=== PATIENT | female | born 2000 | race Caucasian/White ===

== ENCOUNTER → 2020-06-13 14:56 | Outpatient (CLI) | payer OTHER, SELFPAY ==
[2020-06-13 13:24] VITALS: BMI 22.4
[2020-06-13 17:19] LABS: Chlamydia Trachomatis by PCR Negative (Negative); Neisserai gonorrhoeae by PCR Negative (Negative); Probe Check PASS; Sample Adequacy Control PASS; Specimen Processing Control PASS
== END ==
PROVIDERS: PCP Pediatrics; Referring Provider Nurse Practitioner Women's Health; Visit Provider Nurse Practitioner Women's Health
DX: Z11.3 Encounter for screening for infections with a predominantly sexual mode of transmission (principal)
CPT/HCPCS: 87491; 87591

== ENCOUNTER → 2020-06-15 16:22 | Outpatient (CLI) | payer OTHER, SELFPAY ==
[2020-06-13 13:24] VITALS: BMI 22.4
--- NOTE | 2020-06-15 16:26 | US_ITS ---
STUDY: ULTRASOUND OF THE FEMALE PELVIS - COMPLETE REASON FOR EXAM: Female, 19 years old. DYSMENORRHEA LMP: 06/13/2020 TECHNIQUE: Transabdominal and Transvaginal TECHNICAL QUALITY: Adequate. COMPARISON: None. FINDINGS: The uterus is anteverted and is in a midline position. The uterus measures 6.7 x 3.2 x 3.0 cm. Fluid in the cervix. The endometrium measures 2 mm in thickness, and is hyperechoic. There is no demonstrated endometrial mass. There is no demonstrated myometrial mass. I.U.D. - The patient does not have an I.U.D. The right ovary is visualized. The right ovary measures 2.9 x 2.1 x 1.5 cm. There is no right ovarian cyst or ovarian mass. There is no visualized right adnexal mass or complex lesion. Vascularity is grossly intact, although arterial Dopplers were not obtained. If there is clinical concern for torsion, arterial Doppler exam is recommended. The left ovary is visualized. The left ovary measures 1.9 x 1.8 x 1.7 cm. There is no left ovarian cyst or ovarian mass. There is no visualized left adnexal mass or complex lesion. Vascularity is grossly intact, although arterial Dopplers were not obtained. If there is clinical concern for torsion, arterial Doppler exam is recommended. There is no fluid in the cul-de-sac. The pre void volume of the bladder was 34.7 ml. Polycystic ovary disease: No. US/Transvaginal Non- IMPRESSION: Fluid in the cervix. Otherwise, normal uterus. Grossly normal ovaries. Electronically Signed: Mariusz De Jesus MD at 18:24 EDT Tel , Service support ,
--- NOTE | 2020-06-15 16:26 | US_ITS ---
STUDY: ULTRASOUND OF THE FEMALE PELVIS - COMPLETE REASON FOR EXAM: Female, 19 years old. DYSMENORRHEA LMP: 06/13/2020 TECHNIQUE: Transabdominal and Transvaginal TECHNICAL QUALITY: Adequate. COMPARISON: None. FINDINGS: The uterus is anteverted and is in a midline position. The uterus measures 6.7 x 3.2 x 3.0 cm. Fluid in the cervix. The endometrium measures 2 mm in thickness, and is hyperechoic. There is no demonstrated endometrial mass. There is no demonstrated myometrial mass. I.U.D. - The patient does not have an I.U.D. The right ovary is visualized. The right ovary measures 2.9 x 2.1 x 1.5 cm. There is no right ovarian cyst or ovarian mass. There is no visualized right adnexal mass or complex lesion. Vascularity is grossly intact, although arterial Dopplers were not obtained. If there is clinical concern for torsion, arterial Doppler exam is recommended. The left ovary is visualized. The left ovary measures 1.9 x 1.8 x 1.7 cm. There is no left ovarian cyst or ovarian mass. There is no visualized left adnexal mass or complex lesion. Vascularity is grossly intact, although arterial Dopplers were not obtained. If there is clinical concern for torsion, arterial Doppler exam is recommended. There is no fluid in the cul-de-sac. The pre void volume of the bladder was 34.7 ml. Polycystic ovary disease: No. US/Pelvic (Non ) IMPRESSION: Fluid in the cervix. Otherwise, normal uterus. Grossly normal ovaries. Electronically Signed: Mariusz De Jesus MD at 18:24 EDT Tel , Service support ,
== END ==
PROVIDERS: PCP Pediatrics; Referring Provider Nurse Practitioner Women's Health; Visit Provider Nurse Practitioner Women's Health
DX: N94.6 Dysmenorrhea, unspecified (principal)
CPT/HCPCS: 76830; 76856

== ENCOUNTER 2023-07-07 11:49 | Emergency (ER) | payer BC, SELFPAY ==
[2023-07-07] VITALS (7 sets, daily range): BP systolic 138; BP diastolic 95; PULSE 99; RESP 16–18; TEMP 36.9; O2SAT 97; BMI 21.1
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
--- NOTE | 2023-07-07 13:29 | EDS_ITS ---
HPI <CLAUDIO Almazan - Last Filed: 07/07/23 22:10> History of Present Illness Chief Complaint: Mental Health Narrative Narrative: Patient is a 22-year-old female with history of anxiety presents to the emergency department with her parents for altered mental status. Per the patient's mother and stepfather, the patient is a normal acting 22-year-old. She recently graduated from college in [place] with a bachelors in business. Patient over the last 1 week has been exhibiting odd behavior per the parents. Patient did go to [place] greater than 1 week ago and has returned acting differently. Per the mother, the patient is not speaking like usual, the patient is acting odd, extreme paranoid, and is concerned. Per the stepfather, this is completely out of character for their daughter, he said that she is a normal kid. He is scared because she is acting so bizarre, they are concerned that she is a danger to himself. PFSH <CLAUDIO Almazan - Last Filed: 07/07/23 22:10> PFSH Medical History no medical history Home Medications naproxen 500 mg tablet 500 mg PO .COMPLEX #60 tabs 06/13/20 [Rx Last Taken Unknown] montelukast 10 mg tablet 10 mg PO DAILY 07/08/23 [History Last Taken Unknown] Allergy/AdvReac Type Severity Reaction Status Date / Time No Known Allergies Allergy Verified 07/07/23 11:56 Family History (Updated 06/13/20 @ 13:22 by Jennifer Venegas) Grandfather Diabetes Brother Thyroid disorder Social History (Updated 06/13/20 @ 13:43 by Fe Purcell NP, CONVEYANCER[employer]) household members: family number of children: 0 current occupational status: employed current occupation: [employer] history of recent travel: Yes out of state: Yes sexually active: No Smoking Status: Never smoker alcohol intake: never substance use type: marijuana what type of physical activity do you participate in: walking seatbelt use: always do you feel safe at home: Yes additional social history: single ROS <CLAUDIO Almazan - Last Filed: 07/07/23 22:10> ROS ED ROS Narrative Constitutional: Negative for fever, chills, weight loss, weakness Eyes: Negative for vision loss, vision change, double vision ENT: Negative for any sore throat, ear pain, congestion Cardiovascular: Negative for any chest pain, tightness, palpitations Respiratory: Negative for any cough, sputum production, hemoptysis, dyspnea, dyspnea on exertion, orthopnea Gastrointestinal: Negative for any abdominal pain, nausea, vomiting, diarrhea, constipation, blood in stool, blood in vomit : Negative for any urinary frequency, dysuria, retention, blood in urine Muscle skeletal: Negative for any muscle joint pain, stiffness, myalgias, arthralgias, neck pain, back pain Neurological: Negative for any headache, syncope, numbness or tingling, dizziness Skin: Negative for any rashes, lumps, itching, abrasions, lacerations Psychiatric: Negative for any depression, stress, suicidal ideation, homicidal ideation. Positive for feeling of anxiety, paranoia, she states that she does not trust anybody. Hematologic: Negative for any easy bruising, excessive bruising, easy bleeding Allergies: Negative for any eczema, hives, rash EXAM <CLAUDIO Almazan - Last Filed: 07/07/23 22:10> Physical Exam Narrative Exam Narrative: Vital signs reviewed. Patient is difficult to obtain any information from. Patient uses only 1 word answers of yes, no and I do not know. Patient does not obtain eye contact. Patient is constantly looking on the room. Patient is constantly picking at her fingernails. HEET: Head normocephalic atraumatic, TMs clear bilaterally. Posterior pharynx is clear, moist mucous membranes. Nares clear bilaterally. Neck: Supple with no lymphadenopathy or tenderness. No signs of meningismus, negative jolt sign. Cardiac: Regular rate and rhythm no murmurs gallops or rubs, equal peripheral pulses bilaterally. Respiratory: Lungs clear to auscultation bilaterally. No chest tenderness. Abdomen: Soft, nontender, nondistended. No abdominal bruit or pulsatile masses. No hepatosplenomegaly Extremities: No peripheral edema, no signs of gross trauma or deformity. Active full range of motion of all extremities. Neuro: Cranial nerves II through XII intact, no focal neurological deficits. Skin: Clean dry and intact with no rash, purpura, petechiae, vesicles or pustules. Backs/flank: No CVA tenderness, no midline spinal tenderness, no deformity. Psych: At this time, patient does not exhibit suicidal behavior however patient affect is not appropriate. Patient is not answering questions. This is concerning for the parents. Upon my initial examination, I do not feel that the patient should be leaving the hospital as she could be a threat to herself, others. Const Vital Signs: 07/07/23 11:51 07/07/23 11:56 07/07/23 15:29 Temperature 98.4 F Temperature Source Temporal Pulse Rate 99 Respiratory Rate 18 16 Blood Pressure 138/95 H Blood Pressure Mean 109 Pulse Ox 97 Oxygen Delivery Method Room Air 07/07/23 17:00 07/07/23 19:00 07/07/23 21:00 Temperature Temperature Source Pulse Rate Respiratory Rate 16 16 16 Blood Pressure Blood Pressure Mean Pulse Ox Oxygen Delivery Method 07/07/23 23:00 07/08/23 00:04 Temperature Temperature Source Pulse Rate 76 Respiratory Rate 16 16 Blood Pressure 134/84 H Blood Pressure Mean 100 Pulse Ox 99 Oxygen Delivery Method Room Air <Dr. Rahat Carl DO - Last Filed: 07/08/23 06:57> Physical Exam Const Vital Signs: 07/07/23 11:51 07/07/23 11:56 07/07/23 15:29 Temperature 98.4 F Temperature Source Temporal Pulse Rate 99 Respiratory Rate 18 16 Blood Pressure 138/95 H Blood Pressure Mean 109 Pulse Ox 97 Oxygen Delivery Method Room Air 07/07/23 17:00 07/07/23 19:00 07/07/23 21:00 Temperature Temperature Source Pulse Rate Respiratory Rate 16 16 16 Blood Pressure Blood Pressure Mean Pulse Ox Oxygen Delivery Method 07/07/23 23:00 07/08/23 00:04 Temperature Temperature Source Pulse Rate 76 Respiratory Rate 16 16 Blood Pressure 134/84 H Blood Pressure Mean 100 Pulse Ox 99 Oxygen Delivery Method Room Air <Justin Jiménez MD - Last Filed: 07/10/23 21:14> Physical Exam Const Vital Signs: 07/07/23 11:51 07/07/23 11:56 07/07/23 15:29 Temperature 98.4 F Temperature Source Temporal Pulse Rate 99 Respiratory Rate 18 16 Blood Pressure 138/95 H Blood Pressure Mean 109 Pulse Ox 97 Oxygen Delivery Method Room Air 07/07/23 17:00 07/07/23 19:00 07/07/23 21:00 Temperature Temperature Source Pulse Rate Respiratory Rate 16 16 16 Blood Pressure Blood Pressure Mean Pulse Ox Oxygen Delivery Method 07/07/23 23:00 07/08/23 00:04 Temperature Temperature Source Pulse Rate 76 Respiratory Rate 16 16 Blood Pressure 134/84 H Blood Pressure Mean 100 Pulse Ox 99 Oxygen Delivery Method Room Air [facility] <Mello CarpioCLAUDIO - Last Filed: 07/07/23 22:10> [facility] Lab Data Labs: Laboratory Results - last 24 hr 07/07/23 07/07/23 14:16 18:14 WBC 9.8 RBC 4.81 Hgb 15.1 H Hct 43.9 MCV 91.3 MCH 31.4 MCHC 34.4 RDW Std Deviation 42.4 RDW Coeff of Jessica 12.7 Plt Count 327 MPV 9.8 Immature Gran % (Auto) 0.500 Neut % (Auto) 72.2 H Lymph % (Auto) 20.5 Slope % (Auto) 6.4 Eos % (Auto) 0.0 Baso % (Auto) 0.4 Absolute Neuts (auto) 7.1 Absolute Lymphs (auto) 2.00 Nucleated RBC % 0 Sodium 140 Potassium 3.6 Chloride 106 Carbon Dioxide 24.0 Anion Gap 10 BUN 12 Creatinine 0.85 Estim Creat Clear Calc 100.36 Est GFR (MDRD) Af Amer 107 Est GFR (MDRD) Non-Af 88 BUN/Creatinine Ratio 14.1 Glucose 97 Calcium 9.6 Serum , Qual NEGATIVE Urine Opiates Screen NEGATIVE Urine Methadone Screen NEGATIVE Ur Barbiturates Screen NEGATIVE Ur Phencyclidine Scrn NEGATIVE Ur Amphetamines Screen NEGATIVE MDMA (Ecstasy) Screen NEGATIVE U Benzodiazepines Scrn NEGATIVE Urine Cocaine Screen NEGATIVE U Cannabinoids Screen POSITIVE H Ur Drug Screen Comment Ethyl Alcohol < 3.0 Treatment and Re-Evaluation :: Patient is in no obvious respiratory distress, vital signs are stable. Patient presents to the emergency department with her parents for bizarre behavior. Upon initial evaluation, I do believe the patient is acting bizarre, the patient is not acting appropriate. She has not made a threat on her life, or attempted to end her life however patient is not safe to be discharged home. Upon initial evaluation, I do believe the patient needs pink slip, I did speak with the parents they are also in agreement. They are scared to take her home because she is acting so altered. Patient will receive a mental health work-up including the appropriate labs, she will then be evaluated by crisis. Patient remained stable, patient became medically cleared, patient CBC was unremarkable, chemistries were unremarkable, patient is not . Patient's drug abuse was positive for marijuana. No alcohol use. I spoke with crisis, she is currently waiting for acceptance to [facility] at this time. <Dr. Rahat Carl DO - Last Filed: 07/08/23 06:57> [facility] Lab Data Labs: Laboratory Results - last 24 hr 07/07/23 07/07/23 14:16 18:14 WBC 9.8 RBC 4.81 Hgb 15.1 H Hct 43.9 MCV 91.3 MCH 31.4 MCHC 34.4 RDW Std Deviation 42.4 RDW Coeff of Jessica 12.7 Plt Count 327 MPV 9.8 Immature Gran % (Auto) 0.500 Neut % (Auto) 72.2 H Lymph % (Auto) 20.5 Slope % (Auto) 6.4 Eos % (Auto) 0.0 Baso % (Auto) 0.4 Absolute Neuts (auto) 7.1 Absolute Lymphs (auto) 2.00 Nucleated RBC % 0 Sodium 140 Potassium 3.6 Chloride 106 Carbon Dioxide 24.0 Anion Gap 10 BUN 12 Creatinine 0.85 Estim Creat Clear Calc 100.36 Est GFR (MDRD) Af Amer 107 Est GFR (MDRD) Non-Af 88 BUN/Creatinine Ratio 14.1 Glucose 97 Calcium 9.6 Serum , Qual NEGATIVE Urine Opiates Screen NEGATIVE Urine Methadone Screen NEGATIVE Ur Barbiturates Screen NEGATIVE Ur Phencyclidine Scrn NEGATIVE Ur Amphetamines Screen NEGATIVE MDMA (Ecstasy) Screen NEGATIVE U Benzodiazepines Scrn NEGATIVE Urine Cocaine Screen NEGATIVE U Cannabinoids Screen POSITIVE H Ur Drug Screen Comment Ethyl Alcohol < 3.0 Treatment and Re-Evaluation Comments:: Patient was signed out to me while awaiting placement by crisis center. At this time the patient is pending acceptance at [facility]. She has remained calm and cooperative throughout the shift superintendent caustic cresylate not requiring chemical or physical sedation. She remains hemodynamically stable and is medically cleared for transfer/placement in a psychiatric center. <Justin Jiménez MD - Last Filed: 07/10/23 21:14> [facility] Narrative Medical decision making narrative: Dr. Jiménez: I have personally performed a face to face assessment of the patient and have reviewed the STEPHEN Note. I performed a substantive portion of the visit including all aspects of the following. My lopez findings include: History is bizarre behavior, confucianism preoccupation after trip to [place]. Exam is afebrile. Vital signs noted. Regular rate and rhythm. Lungs clear to auscultation bilaterally. Abdomen soft and nontender with normal active bowel sounds. Mild confucianism preoccupation, reading from the book of proverbs during examination. Questionable suicidal ideation, mildly evasive in answers. Medical Decision Making: Check labs. Mental health evaluation. Placement. Patient will be signed out to oncoming physician pending placement in a psychiatric facility. Patient is in stable condition. Other additions or changes: [None] Lab Data Labs: Laboratory Results - last 24 hr 07/07/23 07/07/23 14:16 18:14 WBC 9.8 RBC 4.81 Hgb 15.1 H Hct 43.9 MCV 91.3 MCH 31.4 MCHC 34.4 RDW Std Deviation 42.4 RDW Coeff of Jessica 12.7 Plt Count 327 MPV 9.8 Immature Gran % (Auto) 0.500 Neut % (Auto) 72.2 H Lymph % (Auto) 20.5 Slope % (Auto) 6.4 Eos % (Auto) 0.0 Baso % (Auto) 0.4 Absolute Neuts (auto) 7.1 Absolute Lymphs (auto) 2.00 Nucleated RBC % 0 Sodium 140 Potassium 3.6 Chloride 106 Carbon Dioxide 24.0 Anion Gap 10 BUN 12 Creatinine 0.85 Estim Creat Clear Calc 100.36 Est GFR (MDRD) Af Amer 107 Est GFR (MDRD) Non-Af 88 BUN/Creatinine Ratio 14.1 Glucose 97 Calcium 9.6 Serum , Qual NEGATIVE Urine Opiates Screen NEGATIVE Urine Methadone Screen NEGATIVE Ur Barbiturates Screen NEGATIVE Ur Phencyclidine Scrn NEGATIVE Ur Amphetamines Screen NEGATIVE MDMA (Ecstasy) Screen NEGATIVE U Benzodiazepines Scrn NEGATIVE Urine Cocaine Screen NEGATIVE U Cannabinoids Screen POSITIVE H Ur Drug Screen Comment Ethyl Alcohol < 3.0 Discharge Plan Triage Chief Complaint: Mental Health ED Midlevel Provider: Mello Carpio ED Provider: Justin Jiménez Dx/Rx/DC Orders Prescriptions: No Action naproxen 500 mg tablet 500 mg PO .COMPLEX Qty: 60 3RF Rx Instructions: 500 mg PO at onset of menses and then every 8 hours 1-3 days; administer with food or milk montelukast 10 mg tablet 10 mg PO DAILY Patient Comments: TAKE 1 TABLET BY MOUTH ONCE DAILY Primary Care Provider: Care Physician,No Primary Referrals: Care Physician,No Primary [Primary Care Provider] - Disposition Disposition: Psychiatric Hospital or Unit Discharge Location: [facility] [place] Discharge Date/Time: 07/08/23 10:40
[2023-07-07 14:25] LABS: Absolute Neutrophil Count 7.1 X10^3/uL (2.0-7.7); Basophil# 0.04 X10^3/uL; Basophil% 0.4 % (0-1); Hematocrit 43.9 % (37-47); Hemoglobin 15.1 g/dL (12.0-15.0); Lymphocyte % 20.5 % (19-41); Mean Corp Hgb Conc 34.4 g/dL (32-36); Mean Corpuscular Hgb 31.4 pg (27.0-32.0); Mean Corpuscular Volume 91.3 fL (81-99); Mean Platelet Vol. 9.8 fl (6.2-12.0); Monocyte# 0.62 X10^3/uL; Monocyte% 6.4 % (0-10); NRBC Flagged by Analyzer 0 % (0-5); Neutrophil # 7.05 X10^3/uL (2.7-7.7); Neutrophil % 72.2 % (47-70); Platelet Count 327 K/mm3 (150-450); RBC Distribution Width CV 12.7 % (11.6-14.6); RBC Distribution Width SD 42.4 fl (35.1-43.9); Red Blood Count 4.81 M/mm3 (4.2-5.4); White Blood Count 9.8 K/mm3 (4.4-11.0)
[2023-07-07 14:32] LABS: Internal QC Validated? YES +Cl - CLEAR BKGD; Pregnancy, Serum, hCG Quali. NEGATIVE Negative
[2023-07-07 14:40] LABS: Anion Gap 10 (5-15); BUN 12 mg/dL (7-18); BUN/Creat Ratio 14.1 RATIO (10-20); Calcium,Total 9.6 mg/dL (8.5-10.1); Chloride 106 mmol/L (98-107); Creatinine, Serum 0.85 mg/dL (0.55-1.02); EST Glomerular Filtration Rate 88 mL/min (>60); Est Glom Filt Rate - Afr Amer 107 mL/min (>60); Estimated Creatinine Clearance 100.36 ml/min; Glucose 97 mg/dL (74-106); Potassium 3.6 mmol/L (3.5-5.1); Sodium Level 140 mmol/L (136-145)
[2023-07-07 14:50] LABS: Alcohol, Blood (Medical)-Serum < 3.0 mg/dL
[2023-07-07 18:47] LABS: Amphetamine Urine VISTA NEGATIVE (<1000 ng/mL); Barbiturate Urine VISTA NEGATIVE (< 200 ng/mL); Benzodiazepine Urine VISTA NEGATIVE (< 200 ng/mL); Cocaine Urine VISTA NEGATIVE (< 300 ng/mL); Ecstacy Urine VISTA NEGATIVE (< 500 ng/mL); Methadone Urine VISTA NEGATIVE (< 300 ng/mL); PCP Urine VISTA NEGATIVE (< 25 ng/mL); THC Urine VISTA POSITIVE (< 50 ng/mL); Vista UDS pH Range 6
[2023-07-08 00:04] VITALS: BP 134/84; PULSE 76; RESP 16; O2SAT 99
[2023-07-08 08:00] VITALS: BP 128/81; PULSE 71; RESP 16; O2SAT 99
--- NOTE | 2023-07-08 08:59 | NURSING ---
RECEIVED ACCEPTANCE TO [facility]-- ACCEPTING: DR GOLDMAN- [id number]- RN TO RN [phone]-- CALLED PHYSICIANS TO SET UP TRANSPORT ETA GIVEN:45 MINUTES
--- NOTE | 2023-07-08 10:06 | ED.RN ---
ATTEMPTED REPORT TO [facility] AT 1005, WAITED ON HOLD FOR NURSE FOR >5 MINUTES. WILL ATTEMPT CALL BACK
--- NOTE | 2023-07-08 11:49 | ED.RN ---
REPORT GIVENT TO NICK AT [facility]
== END 2023-07-08 10:40 ==
PROVIDERS: Nurse Practitioner; Emergency Provider Emergency Medicine; Visit Provider Emergency Medicine
DX: R41.82 Altered mental status, unspecified (principal)
CPT/HCPCS: 80048; 80307; 82077; 84703; 85025; 99284